=== PATIENT | female | born 1980 | race African-American/Black ===

== ENCOUNTER 2025-03-12 10:47 | Emergency (ER) | payer MEDICAID ==
[~2025-03-12] VITALS: Ht 170.2 cm; Wt 109.0 kg
[2025-03-12 10:50] VITALS: O2SAT 94
[2025-03-12] MEDS: SODIUM CHLORIDE 0.9% 1,000 ML IV ONE (11:05)
[2025-03-12] MEDS: ONDANSETRON HCL 4MG/2ML INJ IV ONE (11:05)
[2025-03-12] MEDS: KETOROLAC 15MG/ML VIAL IV ONE (11:05)
[2025-03-12 11:20] LABS: BASOPHILS % 0.2 % (0.0-2.0); EOSINOPHILS % 0.1 % (0.0-5.0); HEMATOCRIT. 37.0 % (36.0-48.0); HEMOGLOBIN. 11.8 g/dL (12.0-16.0); LYMPHOCYTES % 9.6 % (20.0-50.0); MEAN PLATELET VOLUME 8.4 fl (7.4-10.4); MONOCYTES % 3.8 % (2.0-8.0); NEUTROPHILS % 86.3 % (40.0-76.0); PLATELET 382 x1000/uL (130-400); RED BLOOD CELL COUNT 5.42 mill/uL (4.2-5.4); RED CELL DISTRIBUTION WIDTH 18.8 % (11.6-14.6)
[2025-03-12 11:24] LABS: ADD RBC MORPHOLOGY YES
[2025-03-12 11:30] LABS: CREATININE 0.8 mg/dL (0.6-1.0)
[2025-03-12 11:31] LABS: PROTEIN TOTAL 8.2 g/dL (6.0-8.3); UREA NITROGEN BLOOD 8 mg/dL (9-23)
[2025-03-12 11:32] LABS: ASPARTATE AMINOTRANSFERASE 42 IU/L (<34)
[2025-03-12 11:33] LABS: BILIRUBIN DIRECT < 0.1 mg/dL (<=3.0); BILIRUBIN TOTAL 0.5 mg/dL (0.1-1.0)
[2025-03-12] MEDS ORDERED: ONDA4TAB50 PO (12:38)
[2025-03-12 12:54] VITALS: BP 115/60; PULSE 70; RESP 15; TEMP 37.2; O2SAT 99
[2025-03-12 13:36] LABS: PLATELET ESTIMATE NORMAL
== END 2025-03-12 12:55 | disposition home or self-care (01) ==
LOC: ER 10:47
DX: R11.2 Nausea with vomiting, unspecified (principal); R19.7 Diarrhea, unspecified
CPT/HCPCS: 80076; 80048; 83690; 85025; 36415; 96361; 96374; 96375; 99284; J1885; J2405; J7030; Z7610